=== PATIENT | female | born 1975 | race Caucasian/White ===

== ENCOUNTER 2017-09-01 10:49 | Emergency (ER) | payer MEDICAID ==
[~2017-09-01] VITALS: Ht 154.9 cm; Wt 78.1 kg
[~2017-09-01 10:49] MED LIST: DIVA250T4 PO; LITH300C PO; QUET400T4 PO; TRAZ100T15 PO; TRAZ150T62 PO
[2017-09-01] MEDS ORDERED: MORPHINE SULFATE 4 MG/ML, 1ML ONE ×2 (11:26→12:01)
[2017-09-01] MEDS ORDERED: ONDANSETRON 2MG/ML, 2ML ONE (11:26)
[2017-09-01] MEDS: MORPHINE SULFATE 4 MG/ML, 1ML IVPush PRN ×2 (11:28→12:05)
[2017-09-01] MEDS ORDERED: SODIUM CHLORIDE 0.9% 1,000ML IV ONE (11:30)
[2017-09-01] MEDS ORDERED: ONDANSETRON 2MG/ML, 2ML IVPush ONE (11:30)
[2017-09-01] MEDS ORDERED: SODIUM CHLORIDE FLUSH 10ML SYR IVF ONE (11:30)
[2017-09-01 11:45] LABS: BASOPHILS # (AUTO) 0.06 x10^3/uL (0-0.1); BASOPHILS % (AUTO) 0 % (0-1); EOSINOPHILS # (AUTO) 0.43 x10^3/uL (0-0.4); EOSINOPHILS % (AUTO) 3 % (1-7); LYMPHOCYTES # (AUTO) 3.05 x10^3/uL (1-3.4); LYMPHOCYTES % (AUTO) 23 % (22-44); MD NO; MEAN CORPUSCULAR HEMOGLOBIN 33.2 pg (27.0-34.8); MEAN CORPUSCULAR HGB CONC 33.7 g/dL (32.4-35.8); MEAN CORPUSCULAR VOLUME 98.7 fL (80-100); MEAN PLATELET VOLUME 7.7 fL (7.4-10.4); MONOCYTES % (AUTO) 6 % (2-9); NEUTROPHILS # (AUTO) 8.72 x10^3/uL (1.8-6.8); NEUTROPHILS % (AUTO) 67 % (42-75); PLATELET COUNT 307 x10^3/uL (130-400); RED BLOOD COUNT 4.89 x10^6/uL (3.82-5.3); RED CELL DISTRIBUTION WIDTH 13.7 % (9.6-15.2)
[2017-09-01 11:54] LABS: ALANINE AMINOTRANSFERASE 15 U/L (12-78); ANION GAP 4 mmol/L (5-15); CALCIUM 9.6 mg/dL (8.5-10.1); CHLORIDE 107 mmol/L (98-107); CREATININE 1.08 mg/dL (0.55-1.02)
[2017-09-01 11:56] LABS: ALKALINE PHOSPHATASE 80 U/L (45-117); BILIRUBIN,TOTAL 0.3 mg/dL (0.2-1.0)
[2017-09-01 12:29] LABS: MICROSCOPIC AUTO
[2017-09-01 12:30] LABS: CULTURE INDICATED? YES
[2017-09-01] MEDS ORDERED: KETOROLAC 30 MG/1 ML ONE (13:21)
[2017-09-01] MEDS ORDERED: KETOROLAC 30 MG/1 ML IVPush ONE (13:30)
[2017-09-01 13:33] VITALS: BP 155/69
== END 2017-09-01 13:35 | disposition home or self-care (01) ==
LOC: ED 11:47
DX: N30.00 Acute cystitis without hematuria (principal); F31.9 Bipolar disorder, unspecified; E03.9 Hypothyroidism, unspecified; I10 Essential (primary) hypertension; Z98.51 Tubal ligation status
CPT/HCPCS: 36415; 80053; 81001; 83605; 85025; 87040; 87086; 96361; 96374; 96375; 96376; 99284; J1885; J2405; J7030

== ENCOUNTER 2020-01-02 21:38 | Inpatient (IN) | payer MEDICAID ==
[~2020-01-02] VITALS: Ht 154.9 cm; Wt 76.5 kg
[~2020-01-02 21:38] MED LIST changes: +TRAZ-175 PO; -TRAZ100T15 PO
[2020-01-02] MEDS ORDERED: BUSP15TA PO (21:43)
--- NOTE | 2020-01-02 21:54 | NUR ---
FIRST CONTACT WITH PT. PT STATES THAT FOR THE PAST WEEK SHE HAS HAD CONSTANT ACHING ABD PAIN. DENIES N/V/D, DENIES FEVERS, DENIES COUGH. PT'S AOX4. RESPS EVEN AND UNLABORED. BP/SPO2 MONITORS IN PLACE. CALL LIGHT WITHIN REACH.
--- NOTE | 2020-01-02 21:54 | NUR ---
PT AMB TO BR WITH STEADY GAIT. URINE CUP GIVEN.
--- NOTE | 2020-01-02 22:10 | NUR ---
URINE COLLECTED AND UA SENT.
--- NOTE | 2020-01-02 22:10 | NUR ---
EKG DONE AT BEDSIDE BY EMT.
[2020-01-02 22:21] LABS: MICROSCOPIC INDICATED
[2020-01-02] MEDS ORDERED: ONDANSETRON 2MG/ML, 2ML ONE (22:59)
[2020-01-02] MEDS ORDERED: MORPHINE SULFATE 4 MG/ML, 1ML ONE (22:59)
[2020-01-02] MEDS ORDERED: ONDANSETRON 2MG/ML, 2ML IVPush ONE (23:00)
[2020-01-02 23:02] LABS: ALANINE AMINOTRANSFERASE 14 U/L (12-78); ALBUMIN 3.6 g/dL (3.4-5.0); ANION GAP 5 mmol/L (5-15); CALCIUM 10.1 mg/dL (8.5-10.1); CHLORIDE 106 mmol/L (98-107); CREATININE 1.04 mg/dL (0.55-1.02)
[2020-01-02] MEDS: MORPHINE SULFATE 4 MG/ML, 1ML IVPush PRN (23:06)
[2020-01-02 23:07] LABS: ALKALINE PHOSPHATASE 71 U/L (45-117); BILIRUBIN,TOTAL 0.2 mg/dL (0.2-1.0); TOTAL PROTEIN 8.1 g/dL (6.4-8.2); TROPONIN I < 0.015 ng/mL (0.000-0.045)
[2020-01-02 23:08] LABS: BASOPHILS # (AUTO) 0.05 x10^3/uL (0-0.1); BASOPHILS % (AUTO) 0 % (0-1); EOSINOPHILS # (AUTO) 0.34 x10^3/uL (0-0.4); EOSINOPHILS % (AUTO) 2 % (1-7); LYMPHOCYTES # (AUTO) 2.77 x10^3/uL (1-3.4); LYMPHOCYTES % (AUTO) 19 % (22-44); MD NO; MEAN CORPUSCULAR HEMOGLOBIN 34.2 pg (27.0-34.8); MEAN CORPUSCULAR HGB CONC 33.4 g/dL (32.4-35.8); MEAN CORPUSCULAR VOLUME 102.2 fL (80-100); MEAN PLATELET VOLUME 7.8 fL (7.4-10.4); MONOCYTES # (AUTO) 1.09 x10^3/uL (0.2-0.8); MONOCYTES % (AUTO) 7 % (2-9); NEUTROPHILS # (AUTO) 10.38 x10^3/uL (1.8-6.8); NEUTROPHILS % (AUTO) 71 % (42-75); PLATELET COUNT 337 x10^3/uL (130-400); RED BLOOD COUNT 4.59 x10^6/uL (3.82-5.3); RED CELL DISTRIBUTION WIDTH 13.5 % (9.6-15.2)
--- NOTE | 2020-01-02 23:11 | NUR ---
PIV EST ON R WRIST WITH NO COMPLICATIONS. PT MEDICATED PER EMAR. PT TOLERATED WELL.
--- NOTE | 2020-01-02 23:18 | NUR ---
GEN SURG PAGED
--- NOTE | 2020-01-02 23:22 | NUR ---
PT AMB TO HOSPITAL PHONE IN HALLWAY WITH STEADY GAIT.
[2020-01-02] MEDS ORDERED: CEFOTETAN PMX 1GM/50ML 50 ML IV ONE (23:30)
[2020-01-02] MEDS ORDERED: CEFOTETAN PMX 1GM/50ML 50 ML ONE (23:33)
--- NOTE | 2020-01-02 23:40 | NUR ---
ABX AND NS INFUSING AT THIS TIME. PT TOLERATED WELL. NO BLOOD CULTURE NEEDED PER EDMD.
[2020-01-03] MEDS ORDERED: SODIUM CHLORIDE 0.9% 1,000ML IVBOLUS ONE
[2020-01-03] MEDS ORDERED: MORPHINE SULFATE 4 MG/ML, 1ML ONE (00:03)
[2020-01-03] MEDS: MORPHINE SULFATE 4 MG/ML, 1ML IVPush PRN (00:04)
[2020-01-03] MEDS ORDERED: SODIUM CHLORIDE 0.9% 1,000 ML IV ONE (00:07)
--- NOTE | 2020-01-03 00:10 | NUR ---
PT MEDICATED PER EMAR. PT TOLERATED WELL. PT'S AOX4. RESPS EVEN AND UNLABORED.
[2020-01-03] MEDS ORDERED: ONDANSETRON 2MG/ML, 2ML IVPush PRN ×2 (00:30→08:00)
[2020-01-03] MEDS ORDERED: MORPHINE SULFATE 4 MG/ML, 1ML IVPush PRN (00:30)
--- NOTE | 2020-01-03 00:35 | NUR ---
PT AMB TO BR AND BACK TO ROOM WITH STEADY GAIT.
--- NOTE | 2020-01-03 00:41 | NUR ---
REPORT GIVEN TO [facility]. ALL QUESTIONS ANSWERED.
[2020-01-03 01:01] VITALS: BP 127/84
[2020-01-03 06:40] VITALS: BP 125/76
[2020-01-03] MEDS: ACETAMINOPHEN 325 MG TABLET PO SCH ×3 (08:00→21:11)
[2020-01-03] MEDS ORDERED: KETOROLAC 30 MG/1 ML IV PRN (08:00)
[2020-01-03] MEDS ORDERED: ONDANSETRON ODT 4 MG PO PRN (08:00)
[2020-01-03] MEDS: ENOXAPARIN 40 MG/0.4 ML SQ SCH (08:10)
[2020-01-03] MEDS: BISACODYL 10 MG SUPP PR SCH (08:10)
[2020-01-03] MEDS: NICOTINE 14MG/24 HR PATCH.TD24 TD SCH (08:10)
[2020-01-03] MEDS: LITHIUM CARBONATE 300 MG CAPSULE PO SCH ×3 (08:11→21:13)
[2020-01-03] MEDS: BUSPIRONE 5 MG TABLET PO SCH ×3 (08:11→21:11)
[2020-01-03] MEDS: morphine SULFATE 10 MG/ML, 1ML IVPush PRN ×3 (10:03→22:51)
[2020-01-03] MEDS: SODIUM CHLORIDE 0.9% 1,000 ML IV SCH (10:03)
[2020-01-03] MEDS ORDERED: LEVO112T4 PO (12:29)
[2020-01-03 13:52] VITALS: BP 150/80
[2020-01-03 20:04] VITALS: BP 131/81
[2020-01-03] MEDS: TRAZODONE 150MG TABLET PO SCH (21:12)
[2020-01-03] MEDS: QUETIAPINE 200 MG TABLET PO SCH (21:14)
[2020-01-04] MEDS: ACETAMINOPHEN 325 MG TABLET PO SCH ×4 (02:02→20:01)
[2020-01-04] MEDS: SODIUM CHLORIDE 0.9% 1,000 ML IV SCH (02:03)
[2020-01-04 02:45] VITALS: BP 122/72
[2020-01-04 05:30] LABS: BASOPHILS # (AUTO) 0.03 x10^3/uL (0-0.1); BASOPHILS % (AUTO) 0 % (0-1); EOSINOPHILS # (AUTO) 0.32 x10^3/uL (0-0.4); EOSINOPHILS % (AUTO) 2 % (1-7); LYMPHOCYTES # (AUTO) 2.93 x10^3/uL (1-3.4); LYMPHOCYTES % (AUTO) 21 % (22-44); MD NO; MEAN CORPUSCULAR HEMOGLOBIN 34.1 pg (27.0-34.8); MEAN CORPUSCULAR HGB CONC 33.3 g/dL (32.4-35.8); MEAN CORPUSCULAR VOLUME 102.3 fL (80-100); MEAN PLATELET VOLUME 7.5 fL (7.4-10.4); MONOCYTES # (AUTO) 0.69 x10^3/uL (0.2-0.8); MONOCYTES % (AUTO) 5 % (2-9); NEUTROPHILS # (AUTO) 9.75 x10^3/uL (1.8-6.8); NEUTROPHILS % (AUTO) 71 % (42-75); PLATELET COUNT 314 x10^3/uL (130-400); RED BLOOD COUNT 4.07 x10^6/uL (3.82-5.3); RED CELL DISTRIBUTION WIDTH 13.5 % (9.6-15.2)
[2020-01-04 05:52] LABS: ANION GAP 4 mmol/L (5-15); CHLORIDE 114 mmol/L (98-107); CREATININE 0.89 mg/dL (0.55-1.02)
[2020-01-04 07:00] VITALS: BP 127/81
[2020-01-04] MEDS: BISACODYL 10 MG SUPP PR SCH (09:00)
[2020-01-04] MEDS: NICOTINE 14MG/24 HR PATCH.TD24 TD SCH (09:31)
[2020-01-04] MEDS: LITHIUM CARBONATE 300 MG CAPSULE PO SCH ×2 (09:32→20:01)
[2020-01-04] MEDS: BUSPIRONE 5 MG TABLET PO SCH ×2 (09:32→20:02)
[2020-01-04] MEDS: ENOXAPARIN 40 MG/0.4 ML SQ SCH (09:32)
[2020-01-04] MEDS: AZTREONAM 1 GM in SODIUM CHLORIDE 0.9% 50 ML IV SCH ×2 (10:44→17:54)
[2020-01-04] MEDS ORDERED: NICOTINE GUM 2 MG BC PRN (11:00)
[2020-01-04] MEDS ORDERED: PROPOFOL 50 ML ONE (11:17)
[2020-01-04] MEDS ORDERED: FENTANYL PF 250 MCG/5ML ONE (11:18)
[2020-01-04] MEDS ORDERED: MIDAZOLAM 1 MG/ML, 2ML ONE (11:18)
[2020-01-04] MEDS ORDERED: PROPOFOL 10 MG/ML, 20ML ONE (11:27)
[2020-01-04] MEDS ORDERED: SUCCINYLCHOLINE 20 MG/ML, 10ML ONE (11:27)
[2020-01-04] MEDS ORDERED: ONDANSETRON 2MG/ML, 2ML ONE (11:27)
[2020-01-04] MEDS ORDERED: ROCURONIUM 10MG/ML,5ML ONE (11:27)
[2020-01-04] MEDS ORDERED: BUPIVACAINE/PF-EPI 0.5% 1:200K ONE (11:29)
[2020-01-04] MEDS ORDERED: CHLORHEXIDINE 15 ML UDC ONE (11:29)
[2020-01-04] MEDS ORDERED: DIAZEPAM 5 MG/ML, 2ML IVPush PRN (12:30)
[2020-01-04] MEDS ORDERED: DIPHENHYDRAMINE 50 MG/ML, 1ML IVPush PRN (12:30)
[2020-01-04] MEDS ORDERED: hydrALAzine 20 MG/ML, 1ML IV PRN (12:30)
[2020-01-04] MEDS ORDERED: EPHEDRINE 50 MG/ML, 1ML IM PRN (12:30)
[2020-01-04] MEDS ORDERED: PROMETHAZINE 25 MG/ML, 1ML IVPush PRN (12:30)
[2020-01-04] MEDS ORDERED: EPHEDRINE 50 MG/ML, 1ML IVPush PRN (12:30)
[2020-01-04] MEDS ORDERED: MEPERIDINE/PF 25MG/0.5ML IVPush PRN (12:30)
[2020-01-04] MEDS ORDERED: METOPROLOL 1 MG/ML, 5ML IV PRN (12:30)
[2020-01-04] MEDS ORDERED: OXYcodone 5 MG/5 ML ORAL.SOL UDC PO PRN (12:30)
[2020-01-04] MEDS ORDERED: MIDAZOLAM 1 MG/ML, 2ML IV PRN (12:30)
[2020-01-04] MEDS ORDERED: ONDANSETRON 2MG/ML, 2ML IVPush PRN (12:30)
[2020-01-04] MEDS ORDERED: LORazepam 2 MG/ML, 1ML ONE (14:18)
[2020-01-04] MEDS ORDERED: FENTANYL PF 100 MCG/2ML ONE (14:18)
[2020-01-04] MEDS: FENTANYL PF 100 MCG/2ML IV PRN ×2 (14:20→14:45)
[2020-01-04] MEDS: LORazepam 2 MG/ML, 1ML IVPush PRN ×2 (14:30→14:40)
[2020-01-04] MEDS ORDERED: HYDROmorphone 1 MG/ML, 1ML INJ ONE (14:53)
[2020-01-04] MEDS: HYDROmorphone 1 MG/ML, 1ML INJ IVPush PRN ×2 (14:56→15:03)
[2020-01-04] MEDS ORDERED: hydrALAzine 20 MG/ML, 1ML ONE (16:17)
[2020-01-04 17:15] VITALS: BP 150/71
[2020-01-04] MEDS: LACTATED RINGERS 1,000 ML IV SCH (17:54)
[2020-01-04 19:17] VITALS: BP 162/85
[2020-01-04] MEDS ORDERED: LORazepam 2 MG/ML, 1ML IVPush ONE (19:30)
[2020-01-04] MEDS: QUETIAPINE 200 MG TABLET PO SCH (20:02)
[2020-01-04] MEDS: TRAZODONE 150MG TABLET PO SCH (20:02)
[2020-01-04] MEDS: OXYcodone IR 5MG TABLET PO PRN (20:33)
[2020-01-04 23:48] VITALS: BP 100/66
[2020-01-05 00:34] LABS: AMPHETAMINE SCREEN, URINE Negative (Negative); BARBITURATE SCREEN, URINE Negative (Negative); BENZODIAZEPINE SCREEN, URINE Positive (Negative); CANNABINOID SCREEN, URINE Positive (Negative); COCAINE SCREEN, URINE Negative (Negative); METHADONE SCREEN, URINE Negative (Negative); OPIATE SCREEN, URINE Positive (Negative)
[2020-01-05] MEDS: AZTREONAM 1 GM in SODIUM CHLORIDE 0.9% 50 ML IV SCH ×2 (01:37→09:27)
[2020-01-05] MEDS: ACETAMINOPHEN 325 MG TABLET PO SCH ×2 (01:38→08:55)
[2020-01-05] MEDS: OXYcodone IR 5MG TABLET PO PRN ×2 (01:46→08:55)
[2020-01-05 03:23] VITALS: BP 152/79
[2020-01-05] MEDS: LACTATED RINGERS 1,000 ML IV SCH (04:00)
[2020-01-05 06:41] VITALS: BP 116/68
[2020-01-05] MEDS ORDERED: SODIUM CHLORIDE 0.9% 1,000 ML IV SCH (07:51)
[2020-01-05 08:07] LABS: MEAN CORPUSCULAR HEMOGLOBIN 34.2 pg (27.0-34.8); MEAN CORPUSCULAR VOLUME 103.7 fL (80-100); MEAN PLATELET VOLUME 7.3 fL (7.4-10.4); PLATELET COUNT 315 x10^3/uL (130-400); RED BLOOD COUNT 4.25 x10^6/uL (3.82-5.3); RED CELL DISTRIBUTION WIDTH 13.2 % (9.6-15.2)
[2020-01-05 08:18] LABS: ANION GAP 5 mmol/L (5-15); CALCIUM 9.6 mg/dL (8.5-10.1); CHLORIDE 113 mmol/L (98-107); CREATININE 0.89 mg/dL (0.55-1.02)
[2020-01-05 08:33] LABS: MD SCAN
[2020-01-05 08:34] LABS: BASOPHILS # (AUTO) 0.02 x10^3/uL (0-0.1); BASOPHILS % (AUTO) 0 % (0-1); EOSINOPHILS # (AUTO) 0.05 x10^3/uL (0-0.4); EOSINOPHILS % (AUTO) 0 % (1-7); LYMPHOCYTES # (AUTO) 1.86 x10^3/uL (1-3.4); LYMPHOCYTES % (AUTO) 13 % (22-44); MONOCYTES # (AUTO) 1.18 x10^3/uL (0.2-0.8); MONOCYTES % (AUTO) 8 % (2-9); NEUTROPHILS # (AUTO) 11.45 x10^3/uL (1.8-6.8); NEUTROPHILS % (AUTO) 79 % (42-75)
[2020-01-05 08:55] LABS: ALANINE AMINOTRANSFERASE 99 U/L (12-78); ALBUMIN 3.2 g/dL (3.4-5.0)
[2020-01-05] MEDS: ENOXAPARIN 40 MG/0.4 ML SQ SCH (08:55)
[2020-01-05] MEDS: BISACODYL 10 MG SUPP PR SCH (08:55)
[2020-01-05 08:56] LABS: ALKALINE PHOSPHATASE 88 U/L (45-117); BILIRUBIN,TOTAL 0.9 mg/dL (0.2-1.0); TOTAL PROTEIN 7.5 g/dL (6.4-8.2)
[2020-01-05] MEDS: BUSPIRONE 5 MG TABLET PO SCH (08:56)
[2020-01-05] MEDS: NICOTINE 14MG/24 HR PATCH.TD24 TD SCH (08:57)
[2020-01-05] MEDS: LITHIUM CARBONATE 300 MG CAPSULE PO SCH (08:57)
[2020-01-05] MEDS ORDERED: METRONIDAZOLE PMX 500MG/100ML 100 ML IV SCH (09:30)
[2020-01-05] MEDS ORDERED: CIPR250T27 PO (11:48)
[2020-01-05] MEDS ORDERED: METR-90 PO (11:48)
[2020-01-05] MEDS ORDERED: OXYC5TAB3 PO (11:48)
== END 2020-01-05 13:04 | disposition home or self-care (01) | DRG 263 ==
LOC: ED 22:06 → EDIP 01-03 00:18 → 4NE 01-03 00:55
PROVIDERS: ADMIT Surgery; ATTEND Hospitalist
PROC: 0FT44ZZ Resection of Gallbladder, Percutaneous Endoscopic Approach (ICD-10-PCS; principal; 2020-01-04 11:00)
DX: K80.00 Calculus of gallbladder with acute cholecystitis without obstruction (principal); K85.90 Acute pancreatitis without necrosis or infection, unspecified; K76.0 Fatty (change of) liver, not elsewhere classified; B96.89 Other specified bacterial agents as the cause of diseases classified elsewhere; E03.9 Hypothyroidism, unspecified; E66.9 Obesity, unspecified; F17.200 Nicotine dependence, unspecified, uncomplicated; F31.9 Bipolar disorder, unspecified; F40.00 Agoraphobia, unspecified; I10 Essential (primary) hypertension; N39.0 Urinary tract infection, site not specified; Z79.899 Other long term (current) drug therapy; Z90.49 Acquired absence of other specified parts of digestive tract
CPT/HCPCS: 36415; 76700; 80048; 80053; 80307; 81001; 81025; 83690; 84484; 84703; 85025; 87077; 87086; 87186; 88304; 93005; 96374; 99285; G0378; J1170; J1650; J1885; J2250; J2405; J2704; J3010; J0330; J2060; J2270; J3490; J7030; J7120